=== PATIENT | male | born 1975 | race Asian ===

== ENCOUNTER 2017-02-09 06:14 | Day surgery (SDC) | payer OTHER ==
[2017-01-31 12:47] LABS: ANION GAP 9 mEq/L (8-16); CALCIUM 9.5 mg/dL (8.5-10.4); CARBON DIOXIDE 31 mEq/l (22-31); CHLORIDE 101 mEq/L (97-110); CREATININE 0.8 mg/dL (0.7-1.3); GLOMERULAR FILTRATION RATE > 60; GLUCOSE 82 mg/dL (70-100); SODIUM 141 mEq/L (134-144)
[~2017-02-09 06:14] MED LIST: OXYMETAZOLINE 30 ML NASAL SPRAY EACHNARE ONE
[2017-02-09] MEDS ORDERED: LR 1,000 ML IV ONE (06:45)
[2017-02-09] MEDS ORDERED: OXYMETAZOLINE 30 ML NASAL SPRAY ONE (07:10)
[2017-02-09] MEDS ORDERED: LIDO/EPI 1% **Not for Epidural 20 ML MDV ONE (07:28)
[2017-02-09] MEDS ORDERED: GLYCOPYRROLATE 0.2 MG/1 ML VIAL ONE (07:41)
[2017-02-09] MEDS ORDERED: LIDOCAINE 2% 5 ML SDV ONE ×3 (07:43)
[2017-02-09] MEDS ORDERED: fentaNYL 100 MCG/2 ML INJ ONE ×2 (07:48→08:29)
[2017-02-09] MEDS ORDERED: KETAMINE 100 MG/10 ML SYR IVP ONE (07:49)
[2017-02-09] MEDS ORDERED: PROPOFOL 200 MG/20 ML VIAL ONE (07:50)
[2017-02-09] MEDS ORDERED: MIDAZOLAM 2 MG/2 ML VIAL ONE ×3 (07:54→07:57)
[2017-02-09] MEDS ORDERED: ceFAZolin 2 GM/DEXTROSE 100 ML IV ONE (08:00)
[2017-02-09] MEDS ORDERED: PROPOFOL/EMULSION 500 MG/50 ML BOTTLE IV ONE (08:26)
[2017-02-09] MEDS ORDERED: ROCURONIUM 50 MG/5 ML VIAL ONE ×2 (08:55)
[2017-02-09] MEDS ORDERED: ONDANSETRON 4 MG/2 ML VIAL ONE (09:52)
[2017-02-09] MEDS ORDERED: LABETALOL HCL 50 MG/10 ML SYR ONE (10:08)
[2017-02-09] MEDS ORDERED: DEXAMETHASONE 4 MG/ML VIAL ONE ×2 (10:25)
[2017-02-09] MEDS ORDERED: SUGAMMADEX SODIUM 200 MG/2 ML VIAL IVP ONE (10:25)
--- NOTE | 2017-02-09 11:31 | GOP ---
[f rep st] OPERATIVE REPORT DATE OF OPERATION: 02/09/2017 SURGEON: Joselin Munguia MD PAPER [employer]ODUCTS INSPECTOR: None. ANESTHESIA: Sedated fiberoptic transoral intubation with general. PREOPERATIVE DIAGNOSIS: 1. Deviated nasal septum. 2. Turbinate hypertrophy. 3. Nasal obstruction. 4. Obstructive sleep apnea. POSTOPERATIVE DIAGNOSIS: 1. Deviated nasal septum. 2. Turbinate hypertrophy. 3. Nasal obstruction. 4. Obstructive sleep apnea. PROCEDURE PERFORMED: 1. Septoplasty. 2. Bilateral inferior turbinate submucous resection. FINDINGS: 1. Deviated nasal septum to the left greater than 80%. 2. Turbinate hypertrophy. 3. Mallampati class 4 with large tongue and anterior airway. Transoral fiberoptic intubation succes sful with a #7 endotracheal tube after hypoglossal and superior laryngeal and transtracheal local an esthetic injections. SPECIMENS: None. ESTIMATED BLOOD LOSS: 20 cc. INDICATIONS: The patient is a pleasant 41-year-old male with a history of obstructive sleep apnea a nd difficulty tolerating a nasal pillow CPAP mask due to chronic nasal obstruction. He was refracto ry to improvement on nasal sprays alone. In-office examination revealed a deviated nasal septum and moderately severe turbinate hypertrophy. He was originally scheduled for surgery at the [facility] in [place]; however, we were unable to intubate him, and that procedure was aborted, and we opted to reschedule him down at the hospital with a planned local anesthetic and sedated transoral fiberoptic intubation. Risks, benefits, and alternatives of the above procedure were discussed. He decided to proceed forward. DESCRIPTION OF PROCEDURE: The patient was met in preoperative holding, and informed consent was con firmed. The patient was brought to the operating room. He was transferred over supine to the opera tive table. He was positioned semi upright, and Dr. Tapia, the anesthesiologist, performed bilater al hypoglossal, bilateral superior laryngeal and a single transtracheal local anesthetic nerve block s. At this point, the tongue was then grasped, and traction was pulled anteriorly, and a fiberoptic intubating bronchoscope with a #7 endotracheal tube over it was inserted into his mouth. After 3 a ttempts, we were able to visualize the airway and entered into the trachea up to the level of the ca itz, and the #7 tube was passed without difficulty. Positioning was confirmed with the fiberoptic scope, and the tube was then affixed with tape, and a bite block was placed as well. At this point, the patient was turned over to the surgeon for the procedure. He was widely prepped and draped in the standard fashion. 6 cc of 1% lidocaine with 1:100,000 epinephrine was infiltrated throughout th e nasal septum. The deviation to the left greater than 80% of the nasal passageway was noted as was the turbinate hypertrophy. A hemitransfixion incision was made on the left side, and submucoperich ondrial flaps were elevated bilaterally. Preserving 1 cm dorsally and 1 cm caudally, the remaining bony cartilaginous deviated septum was removed to the level of the sphenoid face. A spur inferiorly to the left was also removed with Fernando forceps. This significantly improved the nasal airway with regard to the septum. Next, a 0 degree rigid endoscope was used to examine each side. The fla ps were intact bilaterally. Stab incisions were made into each inferior turbinate head, and using a 2 mm microdebrider, submucous resection of each inferior turbinate to the level of the choana was u ndertaken. Each inferior turbinate had a mulberry type change that was debrided with the microdebri liana. At this point, a Boies elevator was then used to outfracture each inferior turbinate as well. A drainage hole stab incision posteriorly on the left was made with a 15 blade scalpel, and the hem itransfixion incision was closed with 4-0 Chromic suture. A 4-0 plain gut suture on a Ang needle was then utilized to perform a mattress stitch throughout the septum. At this point, the nasal airw ay was significantly improved, and the patient was then turned back to Anesthesia for wake up. At the end of this procedure, all sponge, needle and instrument counts were correct. I personally performed all portions of this case. FLUIDS: 1 L of crystalloid. /[id number]/MODL
== END 2017-02-09 13:00 | disposition home or self-care (01) ==
LOC: FSGY 06:14 → F3E 06:14 → UNDOADMOB 06:14 → EEVIPCON 09:00 → EDSTATUS 09:00 → FSGY 13:00
PROVIDERS: ATTEND Otolaryngology
PROC: 09TL4ZZ Resection of Nasal Turbinate, Percutaneous Endoscopic Approach (ICD-10-PCS; principal; 2017-02-09 08:00)
PROC: 09QM3ZZ Repair Nasal Septum, Percutaneous Approach (ICD-10-PCS; principal; 2017-02-09 08:00)
DX: J34.2 Deviated nasal septum (principal); J34.3 Hypertrophy of nasal turbinates
CPT/HCPCS: J0690; J1100; J2250; J2405; J2704; J3010